=== PATIENT | female | born 1980 | race Caucasian/White ===

== ENCOUNTER → 2016-09-12 | Outpatient (CLI) | payer OTHER ==
[~2016-09-12] MED LIST: PREN1TAB29
--- NOTE | 2016-09-12 15:22 | MAMMOGRAPHY REPORT ---
BILATERAL DIGITAL DIAGNOSTIC MAMMOGRAM TOMOSYNTHESIS WITH CAD AND TARGETED BILATERAL ULTRASOUND: 08/22 CLINICAL HISTORY: 36-year-old woman with a palpable lump in the right breast that she has noticed fo r a few weeks. Her physician felt that as well. No skin erythema, thickening or nipple discharge. Occasionally tender with palpation. Family history of breast cancer = maternal aunt. Baseline exa m. TECHNIQUE: Bilateral breast tomosynthesis in addition to standard 2D mammography was performed. Curr ent study was also evaluated with a Computer Aided Detection (CAD) system. COMPARISON: No prior exams were available for comparison. BREAST COMPOSITION: The tissue of both breasts is heterogeneously dense, which may obscure small ma sses. FINDINGS: A triangular possible marker was placed on the skin of the right breast. The patient coul d not definitely feel the lump prior to the mammogram so the skin marker was placed in the general v icinity. There is a possible round 19 x 17 x 16 mm mass in the 9:00 middle to posterior right breas t, near the area of concern as pointed out by the patient. An 8 mm nodular asymmetry is identified in the lateral anterior left breast on the CC view. This asymmetry partially effaces on the corresp onding tomosynthesis images and it could represent overlapping tissue. However, further evaluation with ultrasound was performed. No focal area of architectural distortion or suspicious calcificatio ns are seen bilaterally. Targeted ultrasound was performed in the area of palpable lump pointed out by the patient (in the 9: 00 right breast, 2 cm from the nipple). In the area of concern, there is a circumscribed anechoic s imple cyst with posterior acoustic enhancement, measuring 10.6 x 6.3 x 11.8 mm. A few small cysts a re seen adjacent to this dominant cyst. In the left 12:00 axis, 3 cm from the nipple, there is an o jg parallel circumscribed anechoic simple cyst measuring 5.5 x 2.6 x 2.9 mm. This does not definit brijesh correlate with the mammographic asymmetry in the left breast. However, no other discrete solid or cystic mass is seen throughout the lateral left breast on ultrasound. IMPRESSION: ACR BI-RADS CATEGORY 2: BENIGN, TARGETED ULTRASOUND ACR BI-RADS CATEGORY 2: BENIGN 1. The palpable lump confirmed by the patient in the 9:00 right breast correlates with an anechoic simple cyst on ultrasound measuring 12 mm. 2. Overall, no mammographic evidence of malignancy within the right breast. 3. A nodular asymmetry in the lateral anterior left breast effaces on the corresponding tomosynthes is images and there is no suspicious sonographic correlate. This most likely represents normal over lapping glandular tissue. Incidental note is made of a benign 5 mm simple cyst in the 12:00 left br east. Overall, no mammographic evidence of malignancy in the left breast. Recommend routine screening mammography beginning at age 40, unless there is a new area of palpable concern. These results and recommendations were discussed with the patient at the time of the exam. Approximately 10% of breast cancers are not detected with mammography. A negative mammographic repor t should not delay biopsy if a clinically suggestive mass is present. Goldie Benitez M.D. ay/:09/12/2016 10:57:49 Adjunct Faculty Instructor: Adali LYON)(Louisa), [facility] letter sent: Normal 1/2 BI-RADS Code: ACR BI-RADS Category 2: Benign Ultrasound BI-RADS: ACR BI-RADS Category 2: Benign
== END | disposition home or self-care (01) ==
LOC: C.MAMM 09:41
PROVIDERS: ATTEND Obstetrics & Gynecology
DX: N63 Unspecified lump in breast (principal); Z80.3 Family history of malignant neoplasm of breast; N64.89 Other specified disorders of breast

== ENCOUNTER → 2017-09-06 | Outpatient (CLI) | payer OTHER ==
[2017-09-06 12:14] LABS: HEMATOCRIT 38.3 % (37-47); HEMOGLOBIN 13.3 g/dL (12.0-16.0); MEAN CELL VOLUME 85.7 fL (80-100); MEAN CORPUSCULAR HEMOGLOBIN 29.8 pg (25-34); MEAN CORPUSCULAR HGB CONC 34.7 g/dl (32-36); MEAN PLATELET VOLUME 10.9 fL (7.4-10.4); PLATELET COUNT 177 K/uL (130-400); RED CELL DISTRIBUTION WIDTH CV 12.3 % (11.5-14.5); RED CELL DISTRIBUTION WIDTH SD 38.7 fL (36.4-46.3); WHITE BLOOD COUNT 8.79 K/uL (4.8-10.8)
== END | disposition home or self-care (01) ==
LOC: C.LAB1850 10:30
PROVIDERS: ATTEND Obstetrics & Gynecology
DX: R53.83 Other fatigue (principal)